=== PATIENT | female | born 1970 | race Two or more races ===

== ENCOUNTER 2017-04-11 10:21 | Emergency (ER) | payer OTHER ==
[2017-04-11 10:30] VITALS: BP 139/74; PULSE 115; TEMP 98.5; BMI 28.3
--- NOTE | 2017-04-11 11:25 | PDOC ---
History of Present Illness - General Chief Complaint: Pain Stated Complaint: RT KNEE PAIN Time Seen by Provider: 04/11/17 10:48 History Source: Patient Exam Limitations: No Limitations - History of Present Illness Initial Comments: 04/11/17 11:20 Patient states 3 weeks ago twisted her right knee and since that time has had pain, swelling, and mild immobility. Denies instability and feels is stable however with some turning movements has reproduced pain to the medial aspect. Denies numbness or tingling to foot, no other areas of injury. Has used ibuprofen with some resolved. Occurred: reports: other Severity: reports: mild, moderate Pain Location: reports: lower extremity Modifying Factors: improves with: immobilization, pain medication (right knee) Associated Symptoms (Fall): denies symptoms Past History - Travel Traveled outside of the country in the last 30 days: No Close contact w/someone who was outside of country & ill: No - Past Medical History Allergies/Adverse Reactions: Allergies Allergy/AdvReac Type Severity Reaction Status Date / Time No Known Allergies Allergy Verified 04/11/17 10:29 Home Medications: Ambulatory Orders Naproxen [Naprosyn -] 500 mg PO BID #14 tablet 04/11/17 COPD: No - Suicide/Smoking/Psychosocial Hx Smoking Status: No Smoking History: Never smoked Number of Cigarettes Smoked Daily: 0 Hx Alcohol Use: No Drug/Substance Use Hx: No Review of Systems - Review of Systems Able to Perform ROS?: Yes Is the patient limited Cambodian proficient: Yes Constitutional: Yes: See HPI Musculoskeletal: Yes: Symptoms Reported, See HPI, Joint Pain (right knee), Joint Swelling All Other Systems: Reviewed and Negative *Physical Exam - Vital Signs Last Vital Signs Temp Pulse Resp BP Pulse Ox 98.5 F 115 H 20 139/74 98 04/11/17 10:26 04/11/17 10:26 04/11/17 10:26 04/11/17 10:26 04/11/17 10:26 - Physical Exam General Appearance: Yes: Appropriately Dressed HEENT: positive: MARLIN, Normal ENT Inspection, TMs Normal, Pharynx Normal Neck: positive: Supple Respiratory/Chest: positive: Lungs Clear Musculoskeletal: positive: Normal Inspection, Decreased Range of Motion (with medial tenderness/ no laxity noted. ) Extremity: positive: Normal Capillary Refill, Tender (to medial aspect ), Swelling. negative: Normal Range of Motion (limited ) Integumentary: positive: Normal Color, Pale Neurologic: positive: glass carrier II-XII NML intact, Fully Oriented, Alert, Normal Mood/ Affect, Normal Response, Motor Strength /5 Progress Note - Progress Note Progress Note: right knee sprain- possible meniscus issue . WIll immobilize and refer to ORTHO *DC/Admit/Observation/Transfer Diagnosis at time of Disposition: Right knee sprain Qualifiers: Encounter type: initial encounter Involved ligament of knee: unspecified ligament Qualified Code(s): S83.91XA - Sprain of unspecified site of right knee , initial encounter - Discharge Dispostion Disposition: HOME Condition at time of disposition: Stable Admit: No - Referrals Referrals: Amber Chowdhury MD [Primary Care Provider] - Justin Thomas MD [Staff Physician] - - Patient Instructions Printed Discharge Instructions: DI for Knee Sprain Additional Instructions: Rest, ice to area on and off for 15 minutes 4-6 times a day Avoid heavy lifting or exercise until pain and swelling is resolved or until further directed Keep area highly elevated to reduce swelling Use splints/Jose Luis wrap as directed Followup with orthopedist in one to 2 days if not improving, if significantly improved may wait one week for followup with orthopedist May use ibuprofen 2-200 mg tablets every 6 hours as needed for pain - Post Discharge Activity Forms/Work/School Notes: Back to Work
== END 2017-04-11 11:29 | disposition home or self-care (01) ==
LOC: JERFT 10:21
PROC: 2W3QXYZ Immobilization of Right Lower Leg using Other Device (ICD-10-PCS; principal; 2017-04-11)
DX: S83.91XA Sprain of unspecified site of right knee, initial encounter (principal)
CPT/HCPCS: 99281-25

== ENCOUNTER 2018-04-04 07:28 | Emergency (ER) | payer OTHER ==
[2018-04-04 07:34] VITALS: BMI 28.7
--- NOTE | 2018-04-04 08:08 | PDOC ---
History of Present Illness - General Chief Complaint: Pain, Acute Stated Complaint: PAIN LEFT SIDE Time Seen by Provider: 04/04/18 08:04 History Source: Patient Exam Limitations: Language Barrier ([id number]) - History of Present Illness Initial Comments: 04/04/18 08:59 48 yo F with a history of left sided varicose veins (s/p sclerotherapy 3 years ago) and sciatica presents to the emergency department with left lower extremity pain for 4 days. The patient denies recent trauma, falls, and inciting events (no lifting heavy objects or positional strains). Per the patient, the pain is described as sharp and does not feel like her prior sciatica. The pain originates in the lateral aspect of the buttocks region and radiates to the posterior knee. Per the patient, the pain worsens with LLE manipulation. She had a previous episode similar to this 8 months ago that resolved with muscle relaxant use. Denies the following: fever, chills, nausea, vomiting, diaphoresis, chest pain, headache, SOB, abdominal pain, incontinence, diarrhea, dysuria, hematuria, hematochezia, and leg swelling. Pmhx: Refer to above Shx: Refer to above Meds: None Allergies: NKDA Social: Denies tobacco, alcohol, and substance abuse. Past History - Past Medical History Allergies/Adverse Reactions: Allergies Allergy/AdvReac Type Severity Reaction Status Date / Time No Known Allergies Allergy Verified 04/04/18 07:31 Home Medications: Ambulatory Orders Ibuprofen 600 mg PO QID PRN #24 tablet 04/04/18 Methocarbamol [Robaxin -] 500 mg PO BID #14 tablet 04/04/18 COPD: No - Suicide/Smoking/Psychosocial Hx Smoking Status: No Smoking History: Never smoked Number of Cigarettes Smoked Daily: 0 Information on smoking cessation initiated: No Hx Alcohol Use: No Drug/Substance Use Hx: No Review of Systems - Review of Systems Able to Perform ROS?: Yes Is the patient limited Slovenian proficient: Yes Constitutional: No: Chills, Diaphoresis, Fever HEENTM: No: Recent change in vision, Ear Pain, Nose Pain, Throat Pain, Mouth Pain *Physical Exam - Vital Signs Last Vital Signs Temp Pulse Resp BP Pulse Ox 98.1 F 90 16 104/77 98 04/04/18 07:32 04/04/18 07:32 04/04/18 07:32 04/04/18 07:32 04/04/18 07:32 Moderate Sedation - Procedure Monitoring Vital Signs: Procedure Monitoring Vital Signs Temperature 98.1 F 04/04/18 07:32 Pulse Rate 90 04/04/18 07:32 Respiratory Rate 16 04/04/18 07:32 Blood Pressure 104/77 04/04/18 07:32 O2 Sat by Pulse Oximetry (%) 98 04/04/18 07:32 *DC/Admit/Observation/Transfer Diagnosis at time of Disposition: Muscle pain - Discharge Dispostion Disposition: HOME Decision to Admit order: No - Prescriptions Prescriptions: Ibuprofen 600 mg PO QID PRN #24 tablet PRN Reason: Pain Methocarbamol [Robaxin -] 500 mg PO BID #14 tablet - Referrals Referrals: Amber Chowdhury MD [Primary Care Provider] - - Patient Instructions Printed Discharge Instructions: DI for Sciatica Additional Instructions: You were seen in the emergency department for your muscle pain in the left lower leg. You improved significantly with muscle relaxants and motrin in the department. Please use the prescription given to you as directed on the label. Please follow up with your primary medical doctor within 72 hours after discharge for follow up care and management. Please return to the emergency department if your symptoms worsen or have new concerning symptoms such as inability to urinate or hold in stool, acute leg weakness, loss of sensation, and inability to walk. - Post Discharge Activity Forms/Work/School Notes: Back to Work
[2018-04-04] MEDS ORDERED: METHOCARBAMOL 500 MG TABLET PO ONE (08:56)
[2018-04-04] MEDS ORDERED: IBUPROFEN 600 MG TABLET (FP) PO ONE ×2 (08:56→09:00)
[2018-04-04] MEDS ORDERED: METHOCARBAMOL 500 MG TABLET ONE (09:00)
[2018-04-04 10:54] VITALS: BP 127/79; PULSE 100; TEMP 98.8
== END 2018-04-04 11:24 | disposition home or self-care (01) ==
LOC: JER 07:28
DX: M79.18 Myalgia, other site (principal); Z86.79 Personal history of other diseases of the circulatory system
CPT/HCPCS: 84703; 99282-25

== ENCOUNTER 2019-03-08 13:29 | Emergency (ER) | payer OTHER ==
[2019-03-08 13:37] VITALS: BP 129/78; PULSE 105; TEMP 99.1; BMI 26.4
[2019-03-08] MEDS ORDERED: ALBUTEROL SO4 2.5/IPRATROPIUM 0.5 INH SOL 3 ML VIAL.NEB. NEB ONE ×2 (13:51→13:55)
[2019-03-08] MEDS ORDERED: predniSONE 20 MG TABLET (UD) PO ONE (13:51)
--- NOTE | 2019-03-08 13:54 | PDOC ---
History of Present Illness - General Chief Complaint: Asthma Stated Complaint: SOB Time Seen by Provider: 03/08/19 13:48 History Source: Patient Exam Limitations: No Limitations - History of Present Illness Associated Symptoms: reports: cough Past History - Travel Close contact w/someone who was outside of country & ill: No - Past Medical History Allergies/Adverse Reactions: Allergies Allergy/AdvReac Type Severity Reaction Status Date / Time No Known Allergies Allergy Verified 04/04/18 07:31 Home Medications: Ambulatory Orders Ibuprofen 600 mg PO QID PRN #24 tablet 04/04/18 Methocarbamol [Robaxin -] 500 mg PO BID #14 tablet 04/04/18 Albuterol Sulfate Inhaler - [Ventolin HFA Inhaler -] 1 - 2 inh PO Q4H #1 inhaler 03/08/19 Benzonatate [Tessalon Pearls -] 100 mg PO TID #21 capsule 03/08/19 Prednisone [Deltasone] 20 mg PO ACDIN 4 Days #8 tablet 03/08/19 levoFLOXacin [Levaquin -] 750 mg PO DAILY 4 Days #4 tablet 03/08/19 Asthma: Yes COPD: No - Psycho Social/Smoking Cessation Hx Smoking Status: No Smoking History: Never smoked Have you smoked in the past 12 months: No Number of Cigarettes Smoked Daily: 0 Hx Alcohol Use: No Drug/Substance Use Hx: No Respiratory Specific PMHX - Complaint Specific PMHX Hx Asthma: Yes Review of Systems - Review of Systems Constitutional: Yes: Fever. No: Chills Respiratory: Yes: Cough, Shortness of Breath, Wheezing, Productive cough. No: SOB with Exertion, Stridor Cardiac (ROS): Yes: Chest Tightness. No: Chest Pain, Lightheadedness, Palpitations, Syncope Musculoskeletal: No: Back Pain, Joint Pain *Physical Exam - Vital Signs Last Vital Signs Temp Pulse Resp BP Pulse Ox 99.1 F 105 H 22 H 129/78 99 03/08/19 13:34 03/08/19 13:34 03/08/19 13:34 03/08/19 13:34 03/08/19 13:34 - Physical Exam General Appearance: Yes: Nourished HEENT: positive: EOMI, MARLIN, Normal ENT Inspection Respiratory/Chest: positive: Lungs Clear, Normal Breath Sounds Cardiovascular: positive: Regular Rhythm, Regular Rate, S1, S2 Gastrointestinal/Abdominal: positive: Normal Bowel Sounds Neurologic: positive: ripening room hand II-XII NML intact, Fully Oriented ED Treatment Course - RADIOLOGY Radiology Studies Ordered: Category Date Time Status CHEST PA & LAT [RAD] Stat Radiology 03/08/19 13:51 Ordered Medical Decision Making - Medical Decision Making 03/08/19 13:53 49 years old female with history of asthma denies any prior intubation or hospitalization in the past. Patient reports that she has been coughing wheezing and chest tightness for 4 days she also had a fever. Patient is a non- smoker she denies any palpitation radiation sick contact or recent travel. On exam lungs were clear bilaterally there is no active wheezing noted patient is complaining of chest tightness We will give a DuoNeb prednisone, chest x-ray to rule out rule out pneumonia disposition is pending 03/08/19 18:52 Chest x-ray consistent with infiltrate in the right lower lobe Patient given antibiotics Discharge - Discharge Information Problems reviewed: Yes Clinical Impression/Diagnosis: Asthma attack Qualifiers: Asthma severity: mild Asthma persistence: unspecified Qualified Code(s): J45.901 - Unspecified asthma with (acute) exacerbation Pneumonia Qualifiers: Pneumonia type: due to unspecified organism Laterality: right Lung location: lower lobe of lung Qualified Code(s): J18.9 - Pneumonia, unspecified organism Condition: Stable Disposition: HOME - Admission No - Additional Discharge Information Prescriptions: Albuterol Sulfate Inhaler - [Ventolin HFA Inhaler -] 1 - 2 inh PO Q4H #1 inhaler Benzonatate [Tessalon Pearls -] 100 mg PO TID #21 capsule levoFLOXacin [Levaquin -] 750 mg PO DAILY 4 Days #4 tablet Prednisone [Deltasone] 20 mg PO ACDIN 4 Days #8 tablet Prescription Drug Monitoring Program (I-STOP) results: I-STOP not reviewed - Follow up/Referral Referrals: Amber Chowdhury MD [Primary Care Provider] - - Patient Discharge Instructions Patient Printed Discharge Instructions: Asthma -- Adult, DI for Pneumonia -- Adult Additional Instructions: Your x-ray is consistent with pneumonia Please take medication as prescribed in the pharmacy. Follow-up with your primary care doctor return to the emergency room if you have worsening symptoms - Post Discharge Activity
[2019-03-08] MEDS ORDERED: predniSONE 20 MG TABLET (UD) ONE (13:55)
[2019-03-08] MEDS ORDERED: levoFLOXacin 750 MG TABLET PO SCH (15:45)
--- NOTE | 2019-03-09 10:51 | EKG ---
Test Reason : Blood Pressure : / mmHG Vent. Rate : 090 BPM Atrial Rate : 090 BPM P-R Int : 120 ms QRS Dur : 076 ms QT Int : 358 ms P-R-T Axes : 053 048 041 degrees QTc Int : 437 ms NORMAL SINUS RHYTHM POSSIBLE LEFT ATRIAL ENLARGEMENT BORDERLINE ECG NO PREVIOUS ECGS AVAILABLE Confirmed by JOSE TAPIA, ALCIDES ([id number]) on 03/09/2019 10:51:12 AM Referred By: Confirmed By:ALCIDES GARCIA MD
== END 2019-03-08 16:03 | disposition home or self-care (01) ==
LOC: JERFT 13:29
PROC: 3E0F7GC Introduction of Other Therapeutic Substance into Respiratory Tract, Via Natural or Artificial Opening (ICD-10-PCS; principal; 2019-03-08)
DX: J18.8 Other pneumonia, unspecified organism (principal); J45.901 Unspecified asthma with (acute) exacerbation
CPT/HCPCS: 71046-TC-FY; 84703; 93005; 93010; 94640; 99281-25